=== PATIENT | female | born 1990 | race Two or more races ===

== ENCOUNTER 2016-11-23 10:46 | Emergency (ER) | payer OTHER ==
[2016-11-23] MEDS ORDERED: POLYSPORIN TOPICAL OINTMENT 15GM As Ordered ONE (11:55)
[2016-11-23 12:04] LABS: BASO # 0.1 K/mm3 (0.0-0.2); BASO % 0.9 % (0.0-1.0); EOS # 0.3 K/mm3 (0.0-0.50); LARGE UNSTAINED CELL # 0.1 K/mm3 (0.0-0.4); LARGE UNSTAINED CELL % 1.9 % (0.0-4.0); LYMPH % 30.3 % (24.0-44.0); MEAN CORPUSCULAR HEMOGLOBIN 31.5 pg (27.0-33.0); MEAN CORPUSCULAR HGB CONC 34.7 g/dl (32.0-36.5); MEAN CORPUSCULAR VOLUME 90.6 fl (80.0-96.0); MONO # 0.3 K/mm3 (0.0-0.8); MONO % 4.3 % (0.0-5.0); NEUTROPHILS # 3.7 K/mm3 (1.8-7.7); NEUTROPHILS % 57.5 % (36.0-66.0); PLATELET COUNT, AUTOMATED 282 k/mm3 (150-450); RED CELL DISTRIBUTION WIDTH 11.9 % (11.5-14.5); WHITE BLOOD COUNT 6.5 K/mm3 (4.0-10.0)
[2016-11-23 12:29] LABS: ALBUMIN 4.3 GM/DL (3.2-5.2); ALBUMIN/GLOBULIN RATIO 1.16 (1.00-1.93); ALKALINE PHOSPHATASE 84 U/L (45-117); ALT/SGPT 17 U/L (12-78); ANION GAP 7 MEQ/L (8-16); AST/SGOT 12 U/L (15-37); BILIRUBIN,TOTAL 0.3 MG/DL (0.2-1.0); BLOOD UREA NITROGEN 17 MG/DL (7-18); CALCIUM LEVEL 9.3 MG/DL (8.5-10.1); CARBON DIOXIDE LEVEL 29 MEQ/L (21-32); CHLORIDE LEVEL 104 MEQ/L (98-107); CREATININE FOR GFR 0.83 MG/DL (0.55-1.02); GLOMERULAR FILTRATION RATE > 60.0 (>60); GLUCOSE, FASTING 95 MG/DL (70-105); POTASSIUM SERUM 3.8 MEQ/L (3.5-5.1); SODIUM LEVEL 140 MEQ/L (136-145)
[2016-11-23 12:45] LABS: CONTROL LINE INT CTR LINE PRESENT
--- NOTE | 2016-11-23 13:07 | EDDOCDS ---
Nurse's Notes [facility] Name: Mai Mccurdy Age: 26 yrs Sex: Female : 1990 Arrival Date: 11/23/2016 Time: 10:46 Bed PD Private MD: Xenia Mike Diagnosis: Laceration without foreign body of finger without damage to nail-Right middle finger, Avulsion of skin due to razor Presentation: 11/23 10:57 Presenting complaint: Patient states: works at [employer] and cut self on a razor kr3 of client that is Hep C positive. Adult Sepsis Screening: The patient does not have new or worsening altered mentation. Patient's respiratory rate is less than 22. Systolic blood pressure is greater than 100. Patient has a qSOFA score of 0- Negative Sepsis Screen. Suicide/Homicide risk assessment- the patient denies having any suicidal and/or homicidal ideations and does not present with any other emotional, behavioral or mental health complaints. Status: Patient is not a client services assistant or dependent. Transition of care: patient was not received from another setting of care. 10:57 Method Of Arrival: Walkin/Carried/Asstd kr3 10:57 Acuity: SERGIO Level 4 kr3 Triage Assessment: 11:00 General: Appears in no apparent distress, comfortable, Behavior is cooperative. Pain: kr3 Denies pain. HIV screening NA for this visit Offered previously. Respiratory: Respiratory effort is even, unlabored. Derm: Skin is pink, warm & dry. Injury Description: Puncture sustained to tip of right middle digit is superficial. 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 Zoloft 150mg Oral once daily 2. Vyvanse 30 mg oral cap 1 cap once daily 3. prazosin 1 mg Oral cap daily 4. Remeron 15 mg Oral tab 1 tab once daily - PMHx: Anxiety; Depression; PTSD; - PSHx: Tonsillectomy; Adenoidectomy; wrist surgery left; - Social history: Smoking status: Patient states was never smoker of tobacco. No barriers to communication noted, The patient speaks fluent Tongan, Speaks appropriately for age. - Family history: Not pertinent. - : The pt / caregiver states he / she is not on anticoagulants. Home medication list is obtained from the patient. - Exposure Risk Screening:: None identified. Screenin:57 Screening information is obtained from the patient. Fall risk: No risks identified. ck1 Assistance ADL's: requires no assistance with activities of daily living. Abuse/DV Screen: The patient / caregiver reports he/she is: not in a situation that causes fear, pain or injury. Nutritional screening: No deficits noted. Advance Directives: Currently, there is no health care proxy. home support is adequate. Assessment: 11:58 General: Appears in no apparent distress, comfortable, Behavior is appropriate for age, ck1 cooperative. Pain: Denies pain. Neurological: No deficits noted. Derm: Skin is healthy with good turgor, Skin is pink, warm & dry. Musculoskeletal: Circulation, motion, and sensation intact Range of motion intact in all extremities. 13:04 General: Appears in no apparent distress, comfortable, Behavior is appropriate for age, jo3 cooperative. Neurological: No deficits noted. Level of Consciousness is awake, alert, Oriented to person, place, time. Respiratory: Airway is patent Respiratory effort is even, unlabored. Derm: Skin is pink, warm & dry. Vital Signs: 10:50 BP 144 / 90; Pulse 80; Resp 17; Temp 96.6(O); Pulse Ox 100% on R/A; Weight 61.23 kg lr2 (R); Height 5 ft. 4 in. (162.56 cm) (R); 13:04 BP 149 / 98; Pulse 82; Resp 16; Temp 97.9(T); Pulse Ox 98% on R/A; jo3 10:50 Body Mass Index 23.17 (61.23 kg, 162.56 cm) lr2 Vitals: 10:50 Log In Time: November 23, 2016 at 10:46. lr2 ED Course: 10:48 Patient visited by Jeanie Toledo. lr2 10:48 Patient moved to Waiting lr2 10:49 Xenia Mike RPA-C is Private Physician. lr2 10:49 Patient moved to Pre RCE lr2 10:58 Triage Initiated kr3 11:14 Patient moved to Triage 2 jb5 11:27 Patient visited by Reema Avila PCA. jb5 11:28 [facility] ef1 11:29 Arie Ordoñez MD is Attending Physician. ef1 11:29 Patient visited by Leslie Florentino PA-C. ef1 11:34 Patient moved to jb5 11:47 Patient visited by Gladis López,RUBIA. ck1 11:56 No IV's were initiated during this patient's visit. No procedures done that require ck1 assistance. Wound care to laceration located on palmar aspect of distal phalanx of right index finger was cleaned with dressed with band aid, Patient tolerated well. 11:57 The patient / caregiver is instructed regarding the plan of care and ED course. ck1 11:57 HEPATITIS C ANTIBODY Sent. jb5 11:57 CBC with Diff Sent. jb5 11:57 Complete Comphrensive Metabolic Sent. jb5 11:57 Hepatitis B Surface Antigen Sent. jb5 11:57 Hepatitis B Surface Antibody Sent. jb5 11:57 HIV EXPOSED(ONLY WITH PEP SET) Sent. jb5 12:19 Patient visited by Gladis López,RUBIA. ck1 12:22 [facility] Payment Agreement was scanned into [employer] and attached to record. mm15 12:50 Patient visited by Leslie Florentino PA-C. ef1 12:51 Xenia Mike RPA-C is Referral Physician. ef1 12:51 Dany Bravo is Referral Physician. ef1 Administered Medications: 11:56 Drug: Bacitracin Ointment 500 unit/g 1 applic Route: Topical; Site: affected area; ck1 Order Results: Lab Order: CBC with Diff; SPEC'M 11/23/16 11:55 Test: WHITE BLOOD COUNT; Value: 6.5; Range: 4.0-10.0; Units: K/mm3; Status: F Test: RED BLOOD COUNT; Value: 4.52; Range: 4.00-5.40; Units: M/mm3; Status: F Test: HEMOGLOBIN; Value: 14.2; Range: 12.0-16.0; Units: g/dl; Status: F Test: HEMATOCRIT; Value: 41.0; Range: 36.0-47.0; Units: %; Status: F Test: MEAN CORPUSCULAR VOLUME; Value: 90.6; Range: 80.0-96.0; Units: fl; Status: F Test: MEAN CORPUSCULAR HEMOGLOBIN; Value: 31.5; Range: 27.0-33.0; Units: pg; Status: F Test: MEAN CORPUSCULAR HGB CONC; Value: 34.7; Range: 32.0-36.5; Units: g/dl; Status: F Test: RED CELL DISTRIBUTION WIDTH; Value: 11.9; Range: 11.5-14.5; Units: %; Status: F Test: PLATELET COUNT, AUTOMATED; Value: 282; Range: 150-450; Units: k/mm3; Status: F Test: NEUTROPHILS %; Value: 57.5; Range: 36.0-66.0; Units: %; Status: F Test: LYMPH %; Value: 30.3; Range: 24.0-44.0; Units: %; Status: F Test: MONO %; Value: 4.3; Range: 0.0-5.0; Units: %; Status: F Test: EOS %; Value: 5.0; Range: 0.0-3.0; Abnormal: Above high normal; Units: %; Status: F Test: BASO %; Value: 0.9; Range: 0.0-1.0; Units: %; Status: F Test: LARGE UNSTAINED CELL %; Value: 1.9; Range: 0.0-4.0; Units: %; Status: F Test: NEUTROPHILS #; Value: 3.7; Range: 1.8-7.7; Units: K/mm3; Status: F Test: LYMPH #; Value: 2.0; Range: 1.5-6.5; Units: K/mm3; Status: F Test: MONO #; Value: 0.3; Range: 0.0-0.8; Units: K/mm3; Status: F Test: EOS #; Value: 0.3; Range: 0.0-0.50; Units: K/mm3; Status: F Test: BASO #; Value: 0.1; Range: 0.0-0.2; Units: K/mm3; Status: F Test: LARGE UNSTAINED CELL #; Value: 0.1; Range: 0.0-0.4; Units: K/mm3; Status: F Lab Order: Complete Comphrensive Metabolic; SPEC'M 11/23/16 11:55 Test: GLUCOSE, FASTING; Value: 95; Range: 70-105; Units: MG/DL; Status: F Test: BLOOD UREA NITROGEN; Value: 17; Range: 7-18; Units: MG/DL; Status: F Test: CREATININE FOR GFR; Value: 0.83; Range: 0.55-1.02; Units: MG/DL; Status: F Test: GLOMERULAR FILTRATION RATE; Value: > 60.0; Range: >60; Status: F Test: SODIUM LEVEL; Value: 140; Range: 136-145; Units: MEQ/L; Status: F Test: POTASSIUM SERUM; Value: 3.8; Range: 3.5-5.1; Units: MEQ/L; Status: F Test: CHLORIDE LEVEL; Value: 104; Range: 98-107; Units: MEQ/L; Status: F Test: CARBON DIOXIDE LEVEL; Value: 29; Range: 21-32; Units: MEQ/L; Status: F Test: ANION GAP; Value: 7; Range: 8-16; Abnormal: Below low normal; Units: MEQ/L; Status: F Test: CALCIUM LEVEL; Value: 9.3; Range: 8.5-10.1; Units: MG/DL; Status: F Test: AST/SGOT; Value: 12; Range: 15-37; Abnormal: Below low normal; Units: U/L; Status: F Test: ALT/SGPT; Value: 17; Range: 12-78; Units: U/L; Status: F Test: ALKALINE PHOSPHATASE; Value: 84; Range: 45-117; Units: U/L; Status: F Test: BILIRUBIN,TOTAL; Value: 0.3; Range: 0.2-1.0; Units: MG/DL; Status: F Test: TOTAL PROTEIN; Value: 8.0; Range: 6.4-8.2; Units: GM/DL; Status: F Test: ALBUMIN; Value: 4.3; Range: 3.2-5.2; Units: GM/DL; Status: F Test: ALBUMIN/GLOBULIN RATIO; Value: 1.16; Range: 1.00-1.93; Status: F Test Note: ; Units are mL/min/1.73 m2 Chronic Kidney Disease Staging per NKF: Stage I & II GFR >=60 Normal to Mildly Decreased Stage III GFR 30-59 Moderately Decreased Stage IV GFR 15-29 Severely Decreased Stage V GFR <15 Very Little GFR Left ESRD GFR <15 on TAR DISTILLATION SUPERVISOR Lab Order: HIV EXPOSED(ONLY WITH PEP SET); SPEC'M 11/23/16 11:55 Test: HIVEXPOSED0; Value: NEGATIVE; Range: NEGATIVE; Status: F Test: HIV EXPOSED PT 1; Value: NEGATIVE; Range: NEGATIVE; Status: F Test Note: ; This test was performed utilizing a immunochromatographic sandwich principle technique. Sensitivity of the assay is 100%. Specificity of the assay is 99.7%. Lab Order: Hepatitis B Surface Antibody; SPEC'M 11/23/16 11:55 Test: HEPATITIS B SURFACE ANTIBODY; Range: POSITIVE; Status: I Lab Order: Hepatitis B Surface Antigen; SPEC'M 11/23/16 11:55 Test: HEPATITIS B SURFACE ANTIGEN; Range: NEGATIVE; Status: I Lab Order: HEPATITIS C ANTIBODY; SPEC'M 11/23/16 11:55 Test: HEPATITIS C VIRUS CHRISTIAN INDEX; Range: <0.8; Units: INDEX; Status: I Outcome: 11:57 Discharge Assessment: Patient awake, alert and oriented x 3. No cognitive and/or ck1 functional deficits noted. Patient verbalized understanding of disposition instructions. patient administered narcotics - no. The following High Risk Discharge criteria are identified: None. Discharged to home ambulatory. Condition: stable. Discharge instructions given to patient, Instructed on discharge instructions, follow up and referral plans. medication usage, Demonstrated understanding of instructions, medications, Pt was receptive of discharge instructions/ teaching. No special radiology studies were completed. Property :Personal belongings accompany Pt. 12:51 Discharge ordered by Provider. ef1 13:06 Patient left the ED. jo3 Signatures: Gladis LópzeRN RN ck1 Lynnette Antunez,RN RN kr3 Reema Avila, CATHIE EXPLOSIVES ENGINEER jb5 Monet Miller RN RN jo3 Leslie Florentino, PA-C PA-C ef1 Sarthak Villalta mm15 Jeanie Toledo lr2 Corrections: (The following items were deleted from the chart) 11:02 10:57 Acuity: SERGIO Level 3 kr3 kr3 MTDD
--- NOTE | 2016-11-23 13:07 | EDDOCDS ---
Physician Documentation [facility] Name: Mai Mccurdy Age: 26 yrs Sex: Female : 1990 Arrival Date: 11/23/2016 Time: 10:46 Bed PD Private MD: Xenia Mike Disposition: 11/23/16 12:51 Discharged to Home/Self Care. Impression: Laceration without foreign body of finger without damage to nail - Right middle finger, Avulsion of skin due to razor. - Condition is Stable. - Discharge Instructions: Needle Stick Injury, [id number]. - Medication Reconciliation, Local Pharmacy Hours form. - Follow up: Xenia Mike; When: 1 - 2 days; Reason: Recheck today's complaints, Continuance of care. Follow up: Emergency Department; Reason: Worsening of conditions. Follow up: Dany Bravo; When: 1 - 2 days; Reason: Further diagnostic work-up, Recheck today's complaints, Continuance of care. - Problem is new. - Symptoms have improved. Historical: - Allergies: Ceclor; - Home Meds: 1. Zoloft 150mg Oral once daily 2. Vyvanse 30 mg oral cap 1 cap once daily 3. prazosin 1 mg Oral cap daily 4. Remeron 15 mg Oral tab 1 tab once daily - PMHx: Anxiety; Depression; PTSD; - PSHx: Tonsillectomy; Adenoidectomy; wrist surgery left; - Social history: Smoking status: Patient states was never smoker of tobacco. No barriers to communication noted, The patient speaks fluent Belgian, Speaks appropriately for age. - Family history: Not pertinent. - : The pt / caregiver states he / she is not on anticoagulants. Home medication list is obtained from the patient. - Exposure Risk Screening:: None identified. 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 4 in. (162.56 cm) (R); 13:04 BP 149 / 98; Pulse 82; Resp 16; Temp 97.9(T); Pulse Ox 98% on R/A; jo3 10:50 Body Mass Index 23.17 (61.23 kg, 162.56 cm) lr2 MDM: 11:29 Consult Employee Specpage (-F, 7:30a-4p) or Nursing Test Equipment Mechanic for source patient ef1 testing ordered. 11:29 Place PEP packet on chart ordered. ef1 11:30 CBC with Diff Ordered. EDMS 11:30 Complete Comphrensive Metabolic Ordered. EDMS 11:30 HIV EXPOSED(ONLY WITH PEP SET) Ordered. EDMS 11:30 Hepatitis B Surface Antibody Ordered. EDMS 11:30 Hepatitis B Surface Antigen Ordered. EDMS 11:34 HEPATITIS C ANTIBODY Ordered. EDMS 11:36 Wound Care ordered. ef1 11:47 Consult Employee Specpage (-F, 7:30a-4p) or Nursing Test Equipment Mechanic for source patient ck1 testing complete. 11:50 Bacitracin Ointment 500 unit/g 1 applic Topical in affected area once ordered. ef1 11:50 Dressing ordered. ef1 12:02 Financial registration complete. mm15 12:22 [facility] Payment Agreement was scanned into [employer] and attached to record. mm15 12:50 CBC with Diff Reviewed. ef1 12:50 Complete Comphrensive Metabolic Reviewed. ef1 12:50 HIV EXPOSED(ONLY WITH PEP SET) Reviewed. ef1 12:56 HEPATITIS C ANTIBODY Reviewed. ef1 12:56 Hepatitis B Surface Antibody Reviewed. ef1 12:56 Hepatitis B Surface Antigen Reviewed. ef1 Administered Medications: 11:56 Drug: Bacitracin Ointment 500 unit/g 1 applic Route: Topical; Site: affected area; ck1 Signatures: Dispatcher [employer] EDMS Gladis LópezRN RN ck1 Lynnette Antunez RN RN vern3 Monet Miller RN RN jo3 Leslie Florentino PA-C PAJohnny ef1 Sarthak Villalta mm15 The chart was reviewed and I authenticate all verbal orders and agree with the evaluation and treatment provided.Corrections: (The following items were deleted from the chart) 11:34 11:30 HEPATITIS C ANTIBODY+LAB ordered. EDMS EDMS Attachments: 12:22 [facility] [place] mm15 MTDD
[2016-11-24 11:27] LABS: HEPATITIS B SURFACE ANTIBODY POSITIVE (POSITIVE)
--- NOTE | 2016-11-25 14:07 | EDDOCDS ---
Nurse's Notes [facility] Name: Mai Mccurdy Age: 26 yrs Sex: Female : 1990 Arrival Date: 11/23/2016 Time: 10:46 Bed PD Private MD: Xenia Mike Diagnosis: Laceration without foreign body of finger without damage to nail-Right middle finger, Avulsion of skin due to razor Presentation: 11/23 10:57 Presenting complaint: Patient states: works at [employer] and cut self on a razor kr3 of client that is Hep C positive. Adult Sepsis Screening: The patient does not have new or worsening altered mentation. Patient's respiratory rate is less than 22. Systolic blood pressure is greater than 100. Patient has a qSOFA score of 0- Negative Sepsis Screen. Suicide/Homicide risk assessment- the patient denies having any suicidal and/or homicidal ideations and does not present with any other emotional, behavioral or mental health complaints. Status: Patient is not a director of student financial services or dependent. Transition of care: patient was not received from another setting of care. 10:57 Method Of Arrival: Walkin/Carried/Asstd kr3 10:57 Acuity: SERGIO Level 4 kr3 Triage Assessment: 11:00 General: Appears in no apparent distress, comfortable, Behavior is cooperative. Pain: kr3 Denies pain. HIV screening NA for this visit Offered previously. Respiratory: Respiratory effort is even, unlabored. Derm: Skin is pink, warm & dry. Injury Description: Puncture sustained to tip of right middle digit is superficial. 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 Zoloft 150mg Oral once daily 2. Vyvanse 30 mg oral cap 1 cap once daily 3. prazosin 1 mg Oral cap daily 4. Remeron 15 mg Oral tab 1 tab once daily - PMHx: Anxiety; Depression; PTSD; - PSHx: Tonsillectomy; Adenoidectomy; wrist surgery left; - Social history: Smoking status: Patient states was never smoker of tobacco. No barriers to communication noted, The patient speaks fluent [place], Speaks appropriately for age. - Family history: Not pertinent. - : The pt / caregiver states he / she is not on anticoagulants. Home medication list is obtained from the patient. - Exposure Risk Screening:: None identified. Screenin:57 Screening information is obtained from the patient. Fall risk: No risks identified. ck1 Assistance ADL's: requires no assistance with activities of daily living. Abuse/DV Screen: The patient / caregiver reports he/she is: not in a situation that causes fear, pain or injury. Nutritional screening: No deficits noted. Advance Directives: Currently, there is no health care proxy. home support is adequate. Assessment: 11:58 General: Appears in no apparent distress, comfortable, Behavior is appropriate for age, ck1 cooperative. Pain: Denies pain. Neurological: No deficits noted. Derm: Skin is healthy with good turgor, Skin is pink, warm & dry. Musculoskeletal: Circulation, motion, and sensation intact Range of motion intact in all extremities. 13:04 General: Appears in no apparent distress, comfortable, Behavior is appropriate for age, jo3 cooperative. Neurological: No deficits noted. Level of Consciousness is awake, alert, Oriented to person, place, time. Respiratory: Airway is patent Respiratory effort is even, unlabored. Derm: Skin is pink, warm & dry. Vital Signs: 10:50 BP 144 / 90; Pulse 80; Resp 17; Temp 96.6(O); Pulse Ox 100% on R/A; Weight 61.23 kg lr2 (R); Height 5 ft. 4 in. (162.56 cm) (R); 13:04 BP 149 / 98; Pulse 82; Resp 16; Temp 97.9(T); Pulse Ox 98% on R/A; jo3 10:50 Body Mass Index 23.17 (61.23 kg, 162.56 cm) lr2 Vitals: 10:50 Log In Time: November 23, 2016 at 10:46. lr2 ED Course: 10:48 Patient visited by Jeanie Toledo. lr2 10:48 Patient moved to Waiting lr2 10:49 Xenia Mike RPA-C is Private Physician. lr2 10:49 Patient moved to Pre RCE lr2 10:58 Triage Initiated kr3 11:14 Patient moved to Triage 2 jb5 11:27 Patient visited by Reema Avila PCA. jb5 11:28 Leslie Florentino [facility]-C [facility] ef1 11:29 Arie Ordoñez MD is Attending Physician. ef1 11:29 Patient visited by Leslie Florentino PA-C. ef1 11:34 Patient moved to jb5 11:47 Patient visited by Gladis López,RN. ck1 11:56 No IV's were initiated during this patient's visit. No procedures done that require ck1 assistance. Wound care to laceration located on palmar aspect of distal phalanx of right index finger was cleaned with dressed with band aid, Patient tolerated well. 11:57 The patient / caregiver is instructed regarding the plan of care and ED course. ck1 11:57 HEPATITIS C ANTIBODY Sent. jb5 11:57 CBC with Diff Sent. jb5 11:57 Complete Comphrensive Metabolic Sent. jb5 11:57 Hepatitis B Surface Antigen Sent. jb5 11:57 Hepatitis B Surface Antibody Sent. jb5 11:57 HIV EXPOSED(ONLY WITH PEP SET) Sent. jb5 12:19 Patient visited by Gladis López,RUBIA. ck1 12:22 [facility] Payment Agreement was scanned into [employer] and attached to record. mm15 12:50 Patient visited by Leslie Florentino PA-C. ef1 12:51 Xenia Mike RPA-C is Referral Physician. ef1 12:51 Dany Bravo is Referral Physician. ef1 15:32 T-Sheet-- Draft Copy was scanned into [employer] and attached to record. gb 15:32 Other: PEP was scanned into [employer] and attached to record. gb Administered Medications: 11:56 Drug: Bacitracin Ointment 500 unit/g 1 applic Route: Topical; Site: affected area; ck1 Order Results: Lab Order: CBC with Diff; SPEC'M 11/23/16 11:55 Test: WHITE BLOOD COUNT; Value: 6.5; Range: 4.0-10.0; Units: K/mm3; Status: F Test: RED BLOOD COUNT; Value: 4.52; Range: 4.00-5.40; Units: M/mm3; Status: F Test: HEMOGLOBIN; Value: 14.2; Range: 12.0-16.0; Units: g/dl; Status: F Test: HEMATOCRIT; Value: 41.0; Range: 36.0-47.0; Units: %; Status: F Test: MEAN CORPUSCULAR VOLUME; Value: 90.6; Range: 80.0-96.0; Units: fl; Status: F Test: MEAN CORPUSCULAR HEMOGLOBIN; Value: 31.5; Range: 27.0-33.0; Units: pg; Status: F Test: MEAN CORPUSCULAR HGB CONC; Value: 34.7; Range: 32.0-36.5; Units: g/dl; Status: F Test: RED CELL DISTRIBUTION WIDTH; Value: 11.9; Range: 11.5-14.5; Units: %; Status: F Test: PLATELET COUNT, AUTOMATED; Value: 282; Range: 150-450; Units: k/mm3; Status: F Test: NEUTROPHILS %; Value: 57.5; Range: 36.0-66.0; Units: %; Status: F Test: LYMPH %; Value: 30.3; Range: 24.0-44.0; Units: %; Status: F Test: MONO %; Value: 4.3; Range: 0.0-5.0; Units: %; Status: F Test: EOS %; Value: 5.0; Range: 0.0-3.0; Abnormal: Above high normal; Units: %; Status: F Test: BASO %; Value: 0.9; Range: 0.0-1.0; Units: %; Status: F Test: LARGE UNSTAINED CELL %; Value: 1.9; Range: 0.0-4.0; Units: %; Status: F Test: NEUTROPHILS #; Value: 3.7; Range: 1.8-7.7; Units: K/mm3; Status: F Test: LYMPH #; Value: 2.0; Range: 1.5-6.5; Units: K/mm3; Status: F Test: MONO #; Value: 0.3; Range: 0.0-0.8; Units: K/mm3; Status: F Test: EOS #; Value: 0.3; Range: 0.0-0.50; Units: K/mm3; Status: F Test: BASO #; Value: 0.1; Range: 0.0-0.2; Units: K/mm3; Status: F Test: LARGE UNSTAINED CELL #; Value: 0.1; Range: 0.0-0.4; Units: K/mm3; Status: F Lab Order: Complete Comphrensive Metabolic; SPEC'M 11/23/16 11:55 Test: GLUCOSE, FASTING; Value: 95; Range: 70-105; Units: MG/DL; Status: F Test: BLOOD UREA NITROGEN; Value: 17; Range: 7-18; Units: MG/DL; Status: F Test: CREATININE FOR GFR; Value: 0.83; Range: 0.55-1.02; Units: MG/DL; Status: F Test: GLOMERULAR FILTRATION RATE; Value: > 60.0; Range: >60; Status: F Test: SODIUM LEVEL; Value: 140; Range: 136-145; Units: MEQ/L; Status: F Test: POTASSIUM SERUM; Value: 3.8; Range: 3.5-5.1; Units: MEQ/L; Status: F Test: CHLORIDE LEVEL; Value: 104; Range: 98-107; Units: MEQ/L; Status: F Test: CARBON DIOXIDE LEVEL; Value: 29; Range: 21-32; Units: MEQ/L; Status: F Test: ANION GAP; Value: 7; Range: 8-16; Abnormal: Below low normal; Units: MEQ/L; Status: F Test: CALCIUM LEVEL; Value: 9.3; Range: 8.5-10.1; Units: MG/DL; Status: F Test: AST/SGOT; Value: 12; Range: 15-37; Abnormal: Below low normal; Units: U/L; Status: F Test: ALT/SGPT; Value: 17; Range: 12-78; Units: U/L; Status: F Test: ALKALINE PHOSPHATASE; Value: 84; Range: 45-117; Units: U/L; Status: F Test: BILIRUBIN,TOTAL; Value: 0.3; Range: 0.2-1.0; Units: MG/DL; Status: F Test: TOTAL PROTEIN; Value: 8.0; Range: 6.4-8.2; Units: GM/DL; Status: F Test: ALBUMIN; Value: 4.3; Range: 3.2-5.2; Units: GM/DL; Status: F Test: ALBUMIN/GLOBULIN RATIO; Value: 1.16; Range: 1.00-1.93; Status: F Test Note: ; Units are mL/min/1.73 m2 Chronic Kidney Disease Staging per NKF: Stage I & II GFR >=60 Normal to Mildly Decreased Stage III GFR 30-59 Moderately Decreased Stage IV GFR 15-29 Severely Decreased Stage V GFR <15 Very Little GFR Left ESRD GFR <15 on TELEMARKETING FUNDRAISER Lab Order: HIV EXPOSED(ONLY WITH PEP SET); SPEC' 11/23/16 11:55 Test: HIVEXPOSED0; Value: NEGATIVE; Range: NEGATIVE; Status: F Test: HIV EXPOSED PT 1; Value: NEGATIVE; Range: NEGATIVE; Status: F Test Note: ; This test was performed utilizing a immunochromatographic sandwich principle technique. Sensitivity of the assay is 100%. Specificity of the assay is 99.7%. Lab Order: Hepatitis B Surface Antibody; [facility] 11/23/16 11:55 Test: HEPATITIS B SURFACE ANTIBODY; Value: POSITIVE; Range: POSITIVE; Status: F Lab Order: Hepatitis B Surface Antigen; [facility] 11/23/16 11:55 Test: HEPATITIS B SURFACE ANTIGEN; Value: NEGATIVE; Range: NEGATIVE; Status: F Lab Order: HEPATITIS C ANTIBODY; [facility] 11/23/16 11:55 Test: HEPATITIS C VIRUS CHRISTIAN INDEX; Value: 0.1; Range: <0.8; Units: INDEX; Status: F Test Note: ; Negative Not infected with HCV, unless recent infection is suspected or other evidence exists to indicate HCV infection. Outcome: 11:57 Discharge Assessment: Patient awake, alert and oriented x 3. No cognitive and/or ck1 functional deficits noted. Patient verbalized understanding of disposition instructions. patient administered narcotics - no. The following High Risk Discharge criteria are identified: None. Discharged to home ambulatory. Condition: stable. Discharge instructions given to patient, Instructed on discharge instructions, follow up and referral plans. medication usage, Demonstrated understanding of instructions, medications, Pt was receptive of discharge instructions/ teaching. No special radiology studies were completed. Property :Personal belongings accompany Pt. 12:51 Discharge ordered by Provider. ef1 13:06 Patient left the ED. jo3 Signatures: Katarzyna Thomason, Reg Reg aura López,GladisRN RN ck1 Lynnette Antunez,RN RN kr3 Reema Avila, DISK RECOATER DISK RECOATER jb5 Monet Miller,RN RN jo3 Leslie Florentino, PA-C PA-C ef1 Sarthak Villalta mm15 Jeanie Toledo lr2 Corrections: (The following items were deleted from the chart) 11:02 10:57 Acuity: SERGIO Level 3 kr3 kr3 Chart Complete MTDD
--- NOTE | 2016-11-25 14:07 | EDDOCDS ---
Physician Documentation [facility] Name: Mai Mccurdy Age: 26 yrs Sex: Female : 1990 Arrival Date: 11/23/2016 Time: 10:46 Bed PD Private MD: Xenia Mike Disposition: 11/23/16 12:51 Discharged to Home/Self Care. Impression: Laceration without foreign body of finger without damage to nail - Right middle finger, Avulsion of skin due to razor. - Condition is Stable. - Discharge Instructions: Needle Stick Injury, [id number]. - Medication Reconciliation, Local Pharmacy Hours form. - Follow up: Xenia Mike; When: 1 - 2 days; Reason: Recheck today's complaints, Continuance of care. Follow up: Emergency Department; Reason: Worsening of conditions. Follow up: Dany Bravo; When: 1 - 2 days; Reason: Further diagnostic work-up, Recheck today's complaints, Continuance of care. - Problem is new. - Symptoms have improved. Historical: - Allergies: Ceclor; - Home Meds: 1. Zoloft 150mg Oral once daily 2. Vyvanse 30 mg oral cap 1 cap once daily 3. prazosin 1 mg Oral cap daily 4. Remeron 15 mg Oral tab 1 tab once daily - PMHx: Anxiety; Depression; PTSD; - PSHx: Tonsillectomy; Adenoidectomy; wrist surgery left; - Social history: Smoking status: Patient states was never smoker of tobacco. No barriers to communication noted, The patient speaks fluent [place], Speaks appropriately for age. - Family history: Not pertinent. - : The pt / caregiver states he / she is not on anticoagulants. Home medication list is obtained from the patient. - Exposure Risk Screening:: None identified. 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 4 in. (162.56 cm) (R); 13:04 BP 149 / 98; Pulse 82; Resp 16; Temp 97.9(T); Pulse Ox 98% on R/A; jo3 10:50 Body Mass Index 23.17 (61.23 kg, 162.56 cm) lr2 MDM: 11:29 Consult Employee Health (M-F, 7:30a-4p) or Nursing Front Desk Supervisor for source patient ef1 testing ordered. 11:29 Place PEP packet on chart ordered. ef1 11:30 CBC with Diff Ordered. EDMS 11:30 Complete Comphrensive Metabolic Ordered. EDMS 11:30 HIV EXPOSED(ONLY WITH PEP SET) Ordered. EDMS 11:30 Hepatitis B Surface Antibody Ordered. EDMS 11:30 Hepatitis B Surface Antigen Ordered. EDMS 11:34 HEPATITIS C ANTIBODY Ordered. EDMS 11:36 Wound Care ordered. ef1 11:47 Consult Employee [employer] (-F, 7:30a-4p) or Nursing Front Desk Supervisor for source patient ck1 testing complete. 11:50 Bacitracin Ointment 500 unit/g 1 applic Topical in affected area once ordered. ef1 11:50 Dressing ordered. ef1 12:02 Financial registration complete. mm15 12:22 COUNTS INCLUDE 234 BEDS AT THE [facility] Payment Agreement was scanned into [employer] and attached to record. mm15 12:50 CBC with Diff Reviewed. ef1 12:50 Complete Comphrensive Metabolic Reviewed. ef1 12:50 HIV EXPOSED(ONLY WITH PEP SET) Reviewed. ef1 12:56 HEPATITIS C ANTIBODY Reviewed. ef1 12:56 Hepatitis B Surface Antibody Reviewed. ef1 12:56 Hepatitis B Surface Antigen Reviewed. ef1 15:32 T-Sheet-- Draft Copy was scanned into [employer] and attached to record. gb 15:32 Other: PEP was scanned into [employer] and attached to record. gb Administered Medications: 11:56 Drug: Bacitracin Ointment 500 unit/g 1 applic Route: Topical; Site: affected area; ck1 Signatures: Dispatcher [employer] EDMS Katarzyna Thomason, Reg Reg gb Gladis LópezRN RN ck1 Lynnette Antunez,RN RN vern3 Monet Miller RN RN jo3 Leslie Florentino, PA-C PA-C ef1 Sarthak Villalta mm15 The chart was reviewed and I authenticate all verbal orders and agree with the evaluation and treatment provided.Corrections: (The following items were deleted from the chart) 11:34 11:30 HEPATITIS C ANTIBODY+LAB ordered. EDMS EDMS Attachments: 12:22 [id number] Payment Agreement mm15 15:32 T-Sheet-- Draft Copy gb Chart Complete MTDD
--- NOTE | 2016-11-25 14:07 | EDDOCDS ---
Physician Documentation [facility] Name: Mai Mccurdy Age: 26 yrs Sex: Female : 1990 Arrival Date: 11/23/2016 Time: 10:46 Bed PD Private MD: Xenia Mike Disposition: 11/23/16 12:51 Discharged to Home/Self Care. Impression: Laceration without foreign body of finger without damage to nail - Right middle finger, Avulsion of skin due to razor. - Condition is Stable. - Discharge Instructions: Needle Stick Injury, [id number]. - Medication Reconciliation, Local Pharmacy Hours form. - Follow up: Xenia Mike; When: 1 - 2 days; Reason: Recheck today's complaints, Continuance of care. Follow up: Emergency Department; Reason: Worsening of conditions. Follow up: Dany Bravo; When: 1 - 2 days; Reason: Further diagnostic work-up, Recheck today's complaints, Continuance of care. - Problem is new. - Symptoms have improved. Historical: - Allergies: Ceclor; - Home Meds: 1. Zoloft 150mg Oral once daily 2. Vyvanse 30 mg oral cap 1 cap once daily 3. prazosin 1 mg Oral cap daily 4. Remeron 15 mg Oral tab 1 tab once daily - PMHx: Anxiety; Depression; PTSD; - PSHx: Tonsillectomy; Adenoidectomy; wrist surgery left; - Social history: Smoking status: Patient states was never smoker of tobacco. No barriers to communication noted, The patient speaks fluent Mexican, Speaks appropriately for age. - Family history: Not pertinent. - : The pt / caregiver states he / she is not on anticoagulants. Home medication list is obtained from the patient. - Exposure Risk Screening:: None identified. 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 4 in. (162.56 cm) (R); 13:04 BP 149 / 98; Pulse 82; Resp 16; Temp 97.9(T); Pulse Ox 98% on R/A; jo3 10:50 Body Mass Index 23.17 (61.23 kg, 162.56 cm) lr2 MDM: 11:29 Consult Employee Health (M-F, 7:30a-4p) or Nursing Crime Scene Examiner for source patient ef1 testing ordered. 11:29 Place PEP packet on chart ordered. ef1 11:30 CBC with Diff Ordered. EDMS 11:30 Complete Comphrensive Metabolic Ordered. EDMS 11:30 HIV EXPOSED(ONLY WITH PEP SET) Ordered. EDMS 11:30 Hepatitis B Surface Antibody Ordered. EDMS 11:30 Hepatitis B Surface Antigen Ordered. EDMS 11:34 HEPATITIS C ANTIBODY Ordered. EDMS 11:36 Wound Care ordered. ef1 11:47 Consult Employee [employer] (-F, 7:30a-4p) or Nursing Crime Scene Examiner for source patient ck1 testing complete. 11:50 Bacitracin Ointment 500 unit/g 1 applic Topical in affected area once ordered. ef1 11:50 Dressing ordered. ef1 12:02 Financial registration complete. mm15 12:22 [facility] Payment Agreement was scanned into [employer] and attached to record. mm15 12:50 CBC with Diff Reviewed. ef1 12:50 Complete Comphrensive Metabolic Reviewed. ef1 12:50 HIV EXPOSED(ONLY WITH PEP SET) Reviewed. ef1 12:56 HEPATITIS C ANTIBODY Reviewed. ef1 12:56 Hepatitis B Surface Antibody Reviewed. ef1 12:56 Hepatitis B Surface Antigen Reviewed. ef1 15:32 T-Sheet-- Draft Copy was scanned into [employer] and attached to record. gb 15:32 Other: PEP was scanned into [employer] and attached to record. gb Administered Medications: 11:56 Drug: Bacitracin Ointment 500 unit/g 1 applic Route: Topical; Site: affected area; ck1 Signatures: Dispatcher [employer] EDMS Katarzyna Thomason, Reg Reg gb Gladis LópezRN RN ck1 Lynnette Antunez,RN RN vern3 Monet Miller RN RN jo3 Leslie Florentino, PA-C PA-C ef1 Sarthak Villalta mm15 The chart was reviewed and I authenticate all verbal orders and agree with the evaluation and treatment provided.Corrections: (The following items were deleted from the chart) 11:34 11:30 HEPATITIS C ANTIBODY+LAB ordered. EDMS EDMS Attachments: 12:22 [facility] Payment Agreement mm15 15:32 T-Sheet-- Draft Copy gb Chart Complete MTDD
== END 2016-11-23 13:06 | disposition home or self-care (01) ==
LOC: M ED 10:46
DX: S61.212A Laceration without foreign body of right middle finger without damage to nail, initial encounter (principal); W45.8XXA Other foreign body or object entering through skin, initial encounter; Y92.89 Other specified places as the place of occurrence of the external cause; Y93.89 Activity, other specified; Y99.8 Other external cause status; Z20.89 Contact with and (suspected) exposure to other communicable diseases; F41.9 Anxiety disorder, unspecified; F32.9 Major depressive disorder, single episode, unspecified; F43.10 Post-traumatic stress disorder, unspecified; Z79.899 Other long term (current) drug therapy; Z88.1 Allergy status to other antibiotic agents

== ENCOUNTER → 2017-01-10 | Outpatient (CLI) | payer OTHER | LOC: M WUC 16:47 | PROVIDERS: ATTEND Internal Medicine Infectious Disease | DX: Z77.21 Contact with and (suspected) exposure to potentially hazardous body fluids (principal) ==

== ENCOUNTER → 2018-08-14 | Outpatient (CLI) | payer OTHER, SELFPAY | LOC: M ADAMS 16:53 | DX: M54.9 Dorsalgia, unspecified (principal); G89.29 Other chronic pain | CPT/HCPCS: 72070 ==

== ENCOUNTER → 2019-10-15 | Outpatient (REF) | payer OTHER | LOC: M LAB REF 12:29 | PROVIDERS: ATTEND Physician Assistant | DX: J02.9 Acute pharyngitis, unspecified (principal) ==

== ENCOUNTER 2021-07-13 08:23 | Emergency (ER) | payer OTHER, SELFPAY ==
[~2021-07-13] VITALS: Ht 162.6 cm; Wt 58.3 kg
[2021-07-13] MEDS: MORPHINE 2 MG/ML 1ML VIAL (J2270) IV PRN ×2 (08:51→09:06)
[2021-07-13] MEDS ORDERED: LIDOCAINE 1% SDV 30ML VIAL SC SCH (09:20)
[2021-07-13] MEDS ORDERED: LIDOCAINE 1% SDV 5ML VIAL As Ordered ONE (09:21)
[2021-07-13] MEDS ORDERED: LIDOCAINE 1% SDV 5ML VIAL SC SCH (09:26)
--- NOTE | 2021-07-13 09:52 | REP ---
INDICATION: trauma. COMPARISON: None. TECHNIQUE: Four views of the left hand are provided. FINDINGS: Four views of the left hand demonstrate soft tissue swelling and irregularity consistent with a laceration along the ulnar side of the distal phalanx of the index finger and index PIP joint. There is a chip fracture of the distal and of the proximal phalanx of the index finger and another chip fracture fragment is seen along the ulnar side of the base of the middle phalanx at the PIP joint. Findings are consistent with open fracture. No definite opaque foreign body is seen. IMPRESSION: Findings consistent with open chip fractures of the proximal and middle phalanges of the index finger on either side of the PIP joint. <Electronically signed by Jose Saab > 07/13/21 [id number]
[2021-07-13] MEDS ORDERED: VANCOMYCIN HCL 1,000 MG, VIAL MATE ADAPTER 1 EACH in NS 250 ML IV ONE (10:05)
[2021-07-13 10:21] LABS: RSV AMPLIFICATION NEGATIVE (NEGATIVE)
[2021-07-13] MEDS ORDERED: ZOLO50TA PO (11:28)
[2021-07-13] MEDS ORDERED: VYVA40CA3 (11:28)
[2021-07-13] MEDS ORDERED: MORPHINE 2 MG/ML 1ML VIAL (J2270) IV PRN (13:25)
[2021-07-13] MEDS ORDERED: NS 1,000 ML IV ONE (13:25)
[2021-07-13 14:31] VITALS: BP 137/92
== END 2021-07-13 14:39 | disposition short-term general hospital (02) ==
LOC: M ED 08:23
DX: S62.641B Nondisplaced fracture of proximal phalanx of left index finger, initial encounter for open fracture (principal); S62.651B Nondisplaced fracture of middle phalanx of left index finger, initial encounter for open fracture; W23.1XXA Caught, crushed, jammed, or pinched between stationary objects, initial encounter; Y92.9 Unspecified place or not applicable; Y93.9 Activity, unspecified; Y99.0 Civilian activity done for income or pay; F90.9 Attention-deficit hyperactivity disorder, unspecified type; F43.10 Post-traumatic stress disorder, unspecified; Z79.899 Other long term (current) drug therapy
CPT/HCPCS: 64450; 73130; 87631; 96365; 96366; 96375; 96376; 99284; J2270; J3370

== ENCOUNTER 2021-12-24 11:56 | Emergency (ER) | payer BC, OTHER ==
[~2021-12-24] VITALS: Ht 162.6 cm; Wt 56.8 kg
[~2021-12-24 11:56] MED LIST: VYVA40CA3; ZOLO50TA PO
[2021-12-24] MEDS ORDERED: ROBA1000 PO (12:01)
[2021-12-24] MEDS ORDERED: KETOROLAC 30 MG/ML 1ML VIAL IM ONE (12:15)
[2021-12-24] MEDS ORDERED: ACETAMINOPHEN 325 MG TAB PO ONE (12:15)
[2021-12-24] MEDS ORDERED: KETO10TAB PO (13:24)
[2021-12-24 13:47] VITALS: BP 152/97
== END 2021-12-24 13:48 | disposition home or self-care (01) ==
LOC: M ED 11:56
DX: M62.830 Muscle spasm of back (principal); M54.50 Low back pain, unspecified; F32.A Depression, unspecified; Z88.1 Allergy status to other antibiotic agents
CPT/HCPCS: 96372; 99283; J1885

== ENCOUNTER → 2021-12-29 | Outpatient (CLI) | payer BC ==
[~2021-12-29] MED LIST changes: +KETO10TAB PO; +ROBA1000 PO
== END ==
LOC: M WUC 11:09
PROVIDERS: ATTEND Internal Medicine
DX: R07.9 Chest pain, unspecified (principal)

== ENCOUNTER → 2022-04-20 | Outpatient (REF) | payer BC | LOC: M LAB REF 16:32 | PROVIDERS: ATTEND Registered Nurse | DX: R53.83 Other fatigue (principal) ==

== ENCOUNTER → 2022-07-26 | Outpatient (REF) | payer BC | LOC: M LAB REF 16:21 | PROVIDERS: ATTEND Internal Medicine | DX: R76.9 Abnormal immunological finding in serum, unspecified (principal) ==

== ENCOUNTER → 2022-10-19 | Outpatient (REF) | payer BC ==
[2022-10-19 16:35] LABS: APPEARANCE, URINE MANUAL CLEAR (CLEAR); COLOR, URINE MANUAL YELLOW (YELLOW)
[2022-10-19 16:36] LABS: BILIRUBIN, URINE MANUAL NEGATIVE (NEGATIVE); BLOOD URINE MANUAL NEGATIVE (NEGATIVE); GLUCOSE, URINE (UA) MANUAL NEGATIVE (NEGATIVE); KETONE, URINE MANUAL NEGATIVE (NEGATIVE); LEUKOCYTE ESTERASE, URINE MAN NEGATIVE (NEGATIVE); NITRITE, URINE MANUAL NEGATIVE (NEGATIVE); PH,URINE MAN 5.5 UNITS (5.0 - 7.0); PROTEIN, URINE MANUAL NEGATIVE (NEGATIVE); UROBILINOGEN, URINE MANUAL NORMAL (NORMAL)
[2022-10-19 16:48] LABS: C REACTIVE PROTEIN QUANTITATIV < 0.40 MG/DL (<1.0); MAGNESIUM LEVEL 2.2 MG/DL (1.8-2.4)
[2022-10-19 16:49] LABS: ALBUMIN 4.3 G/DL (3.2-5.2); ALKALINE PHOSPHATASE 79 U/L (46-116); ALT/SGPT 11 U/L (7.0-40); AST/SGOT 15 U/L (<34); BILIRUBIN,DIRECT 0.1 MG/DL (<0.4); BILIRUBIN,TOTAL 0.5 MG/DL (0.3-1.2); BLOOD UREA NITROGEN 16 MG/DL (9-23); CALCIUM LEVEL 9.3 MG/DL (8.5-10.1); CARBON DIOXIDE LEVEL 30 MMOL/L (20-31); CHLORIDE LEVEL 104 MMOL/L (98-107); CREATININE FOR GFR 0.79 MG/DL (0.55-1.30); GLOMERULAR FILTRATION RATE > 60.0 (>60); GLUCOSE, FASTING 80 MG/DL (60-100); IRON (FE) 105 UG/DL (50-170); POTASSIUM SERUM 3.3 MMOL/L (3.5-5.1); SODIUM LEVEL 139 MMOL/L (136-145); TOTAL PROTEIN 7.2 G/DL (5.7-8.2)
[2022-10-19 16:50] LABS: COMPLEMENT C4 27.4 MG/DL (12-36); TOTAL 25(OH) VITAMIN D 14.2 NG/ML (20.0-100.0)
[2022-10-19 16:51] LABS: FOLATE 20.8 NG/ML (>5.4); THYROID STIMULATING HORMONE 0.903 uIU/ML (0.55-4.78); VITAMIN B12 LEVEL 375 PG/ML (211-911)
[2022-10-19 16:53] LABS: BASO # 0.1 10^3/uL (0.0-0.2); BASO % 0.8 % (0.0-1.0); EOS # 0.2 10^3/uL (0.0-0.5); EOS % 2.7 % (0.0-3.0); HEMATOCRIT 43.1 % (36.0-47.0); HEMOGLOBIN 15.3 g/dl (12.0-15.5); LYMPH # 1.7 10^3/uL (1.5-5.0); LYMPH % 28.4 % (24.0-44.0); MEAN CORPUSCULAR HGB CONC 35.5 g/dl (32.0-36.5); MEAN CORPUSCULAR VOLUME 92.9 fl (80.0-96.0); MONO # 0.4 10^3/uL (0.0-0.8); MONO % 6.7 % (2.0-8.0); NEUTROPHILS # 3.7 10^3/uL (1.5-8.5); NEUTROPHILS % 61.2 % (36.0-66.0); PLATELET COUNT, AUTOMATED 258 10^3/uL (150-450); RED BLOOD COUNT 4.64 10^6/uL (4.00-5.40)
[2022-10-19 17:00] LABS: TOTAL PROTEIN,RANDOM URINE 20.3 MG/DL (0.0-14.0)
[2022-10-19 17:05] LABS: CREATININE,RANDOM URINE 187.1 MG/DL
[2022-10-19 17:21] LABS: ERYTHROCYTE SEDIMENTATION RATE 9 mm/hr (0-20)
[2022-10-26 12:15] LABS: DRVV SCREEN 35.7 SEC
[2022-10-26 12:20] LABS: PTT LUPUS TYPE ANTICOAG SCREEN 0.9 (0-1.2)
== END ==
LOC: M SFHCRHEU 14:21
PROVIDERS: ATTEND Internal Medicine
DX: R76.8 Other specified abnormal immunological findings in serum (principal); M79.10 Myalgia, unspecified site; R53.83 Other fatigue; M54.9 Dorsalgia, unspecified

== ENCOUNTER → 2022-11-08 | Outpatient (CLI) | payer BC | LOC: M SLEEP HO 13:38 | PROVIDERS: ATTEND Internal Medicine | DX: R53.83 Other fatigue (principal) ==

== ENCOUNTER → 2022-11-30 | Outpatient (CLI) | payer BC | LOC: M WUC 15:48 | PROVIDERS: ATTEND Internal Medicine | DX: M54.9 Dorsalgia, unspecified (principal) ==

== ENCOUNTER → 2023-03-06 | Outpatient (CLI) | payer BC ==
[2023-03-13 18:08] LABS: ACETYLCHOLINE RCPTOR BINDING A 0.04 nmol/L (0.00-0.24); ACETYLCHOLINE RCPTOR BLOCK AB 19 % (0-25); STRIATIONAL ANTIBODIES Negative (Neg:<1:100)
== END ==
LOC: M WUC 11:17
PROVIDERS: ATTEND Psychiatry & Neurology Neurology
DX: R53.83 Other fatigue (principal)

== ENCOUNTER → 2023-06-08 | Outpatient (REF) | payer BC ==
[2023-06-08 18:41] LABS: TOTAL 25(OH) VITAMIN D 17.8 NG/ML (20.0-100.0)
[2023-06-08 18:44] LABS: BLOOD UREA NITROGEN 15 MG/DL (9-23); CALCIUM LEVEL 8.7 MG/DL (8.5-10.1); CARBON DIOXIDE LEVEL 25 MMOL/L (20-31); CHLORIDE LEVEL 106 MMOL/L (98-107); CREATININE FOR GFR 0.77 MG/DL (0.55-1.30); GLOMERULAR FILTRATION RATE > 60.0 (>60); GLUCOSE, FASTING 77 MG/DL (60-100); SODIUM LEVEL 139 MMOL/L (136-145)
== END ==
LOC: M WUC 16:11
PROVIDERS: ATTEND Internal Medicine
DX: E53.8 Deficiency of other specified B group vitamins (principal); E87.6 Hypokalemia; E55.9 Vitamin D deficiency, unspecified

== ENCOUNTER → 2023-11-09 | Outpatient (REF) | payer BC, MEDICAID ==
[2023-11-09 18:22] LABS: BASO # 0.1 10^3/uL (0.0-0.2); BASO % 0.7 % (0.0-1.0); EOS # 0.5 10^3/uL (0.0-0.5); EOS % 7.1 % (0.0-3.0); HEMATOCRIT 42.2 % (36.0-47.0); HEMOGLOBIN 14.1 g/dl (12.0-15.5); LYMPH # 2.6 10^3/uL (1.5-5.0); LYMPH % 36.9 % (24.0-44.0); MEAN CORPUSCULAR HEMOGLOBIN 30.7 pg (27.0-33.0); MEAN CORPUSCULAR HGB CONC 33.4 g/dl (32.0-36.5); MEAN CORPUSCULAR VOLUME 91.9 fl (80.0-96.0); MONO # 0.4 10^3/uL (0.0-0.8); MONO % 6.3 % (2.0-8.0); NEUTROPHILS # 3.4 10^3/uL (1.5-8.5); NEUTROPHILS % 48.9 % (36.0-66.0); PLATELET COUNT, AUTOMATED 257 10^3/uL (150-450); RED BLOOD COUNT 4.59 10^6/uL (4.00-5.40); WHITE BLOOD COUNT 6.9 10^3/uL (4.0-10.0)
[2023-11-09 18:39] LABS: ALBUMIN 3.8 G/DL (3.2-5.2); ALKALINE PHOSPHATASE 74 U/L (46-116); ALT/SGPT < 9 U/L (7.0-40); AST/SGOT 11 U/L (<34); BILIRUBIN,TOTAL 0.7 MG/DL (0.3-1.2); BLOOD UREA NITROGEN 11 MG/DL (9-23); CALCIUM LEVEL 8.8 MG/DL (8.5-10.1); CARBON DIOXIDE LEVEL 25 MMOL/L (20-31); CHLORIDE LEVEL 109 MMOL/L (98-107); CREATININE FOR GFR 0.75 MG/DL (0.55-1.30); GLOMERULAR FILTRATION RATE > 60.0 (>60); GLUCOSE, FASTING 70 MG/DL (60-100); POTASSIUM SERUM 3.7 MMOL/L (3.5-5.1); SODIUM LEVEL 140 MMOL/L (136-145); TOTAL PROTEIN 6.8 G/DL (5.7-8.2)
== END ==
LOC: M LABWUC 16:29
PROVIDERS: ATTEND Psychiatry & Neurology Neurology
DX: R51.9 Headache, unspecified (principal)

== ENCOUNTER → 2023-11-09 | Outpatient (REF) | payer BC, MEDICAID | LOC: M LABWUC 16:28 | PROVIDERS: ATTEND Internal Medicine | DX: E55.9 Vitamin D deficiency, unspecified (principal) ==

== ENCOUNTER → 2024-05-20 | Outpatient (REF) | LOC: M EMP 10:06 | PROVIDERS: ATTEND Family Medicine | DX: Z11.52 Encounter for screening for COVID-19 (principal) ==

== ENCOUNTER → 2024-07-29 | Outpatient (REF) | payer BC, MEDICAID, OTHER ==
[2024-07-29 14:39] LABS: C REACTIVE PROTEIN QUANTITATIV < 0.40 MG/DL (<1.0)
[2024-07-29 14:42] LABS: RHEUMATOID FACTOR QUANT < 3.5 IU/ML (<14)
[2024-07-30 15:47] LABS: ANA SCREEN, IFA NEGATIVE (NEGATIVE)
== END ==
LOC: M LAB REF 13:41
PROVIDERS: ATTEND Internal Medicine
DX: R51.9 Headache, unspecified (principal); M54.81 Occipital neuralgia

== ENCOUNTER → 2025-06-29 | Outpatient (REF) | LOC: M EMP 14:00 | PROVIDERS: ATTEND Family Medicine | DX: Z11.52 Encounter for screening for COVID-19 (principal) ==